=== PATIENT | male | born 1945 | race Caucasian/White ===

== ENCOUNTER → 2021-01-18 | Outpatient (CLI) | payer MEDICARE | LOC: CARD 09:00 | PROVIDERS: ATTEND Internal Medicine Cardiovascular Disease | DX: I51.7 Cardiomegaly (principal); I35.0 Nonrheumatic aortic (valve) stenosis | CPT/HCPCS: 93306 ==

== ENCOUNTER → 2021-04-17 | Day surgery (SDC) | payer MEDICARE ==
[~2021-04-17] VITALS: Ht 180.3 cm; Wt 88.0 kg
[~2021-04-17] MED LIST: LIDOCAINE 1% INJ 20 ML 20 ML VIAL ONE
[2021-04-17 08:03] VITALS: BP 123/80
--- NOTE | 2021-04-17 11:20 | OPERATIVE REPORT ---
DATE OF SERVICE: 04/17/2021 PREOPERATIVE DIAGNOSIS: Symptoms suggestive of transient ischemic attack. POSTOPERATIVE DIAGNOSIS: Symptoms suggestive of transient ischemic attack. PROCEDURE PERFORMED: Implantable loop recorder implantation. INDICATIONS FOR PROCEDURE: The patient is a 75-year-old gentleman, who has had symptoms suggestive of transient ischemic attack. Occult atrial fibrillation is suspected. Implantable loop recorder implantation was carried out after having obtained an informed consent. DESCRIPTION OF PROCEDURE: [facility] The left prepectoral area was prepared and draped in the usual sterile fashion. Lidocaine 1% was used for local anesthesia. The tools provided with the Medtronic LINQ device were used to make a pocket anterior to the left fourth intercostal space into which the device was placed. The device is Medtronic LINQ2 with serial number [id number]. The skin edges were closed using Dermabond and Steri-Strips. He tolerated the procedure well. Job ID: [id number] DocumentID: [id number] Dictated Date: 04/17/2021 08:49:37 [employer] Architect Date: 04/17/2021 11:18:23 Dictated By: MARY LOU VILLA MD, MA, FACP, FACC,
== END ==
LOC: CATH 07:50
PROVIDERS: ATTEND Internal Medicine Cardiovascular Disease
DX: G45.3 Amaurosis fugax (principal); I35.8 Other nonrheumatic aortic valve disorders; I51.9 Heart disease, unspecified; Z79.899 Other long term (current) drug therapy
CPT/HCPCS: 33285; C1764

== ENCOUNTER → 2021-04-26 | Outpatient (CLI) | payer MEDICARE ==
--- NOTE | 2021-04-26 09:12 | Diagnostic Imaging Report ---
PROCEDURE: CT head without contrast. TECHNIQUE: Multiple contiguous axial images were obtained through the brain without the use of intravenous contrast. Auto Exposure Controls were utilized during the CT exam to meet ALARA standards for radiation dose reduction. INDICATION: Visual changes in the right eye. No prior studies are available for comparison. The ventricles and sulci are appropriate for the patient's age. No sulcal effacement or midline shift is identified. No acute intra-axial or extra-axial hemorrhage is detected. Cisterns are patent. Visualized paranasal sinuses are clear. IMPRESSION: No acute intracranial process is detected. Dictated by: Dictated on workstation # [id number]
== END ==
LOC: RAD 08:30
PROVIDERS: ATTEND Family Medicine
DX: H53.131 Sudden visual loss, right eye (principal)
CPT/HCPCS: 70450

== ENCOUNTER → 2022-08-27 | Outpatient (CLI) | payer MEDICARE ==
[~2022-08-27] VITALS: Ht 180 cm; Wt 87.0 kg
[~2022-08-27] MED LIST changes: -LIDOCAINE 1% INJ 20 ML 20 ML VIAL ONE; +REGADENOSON 0.4 MG/5 ML SYR (LEXISCAN) IV ONE
[2022-08-27] MEDS: CATHETER FLUSH 10 ML SYR IVP PRN ×2 (07:20→08:59)
[2022-08-27 08:58] VITALS: BP 130/81
--- NOTE | 2022-08-27 20:05 | STRESS TEST ---
DATE OF SERVICE: 08/27/2022 RESTING AND POST REGADENOSON TECHNETIUM-99M TETROFOSMIN SPECT CT IMAGING CLINICAL DIAGNOSIS: Coronary artery disease. ORDERING PHYSICIAN: Dr. Dodge. PRIMARY PHYSICIAN: Dr. Mishra. Baseline images were carried out after injection of 10.91 mCi of technetium-99m Tetrofosmin. This was followed by 0.4 mg Regadenoson and 29 mCi of technetium-99m Tetrofosmin for stress imaging. The electrocardiogram showed sinus rhythm at baseline. It did not change significantly with the Regadenoson infusion. He tolerated the procedure well. Review of images at rest and following stress does not indicate any significant perfusion defects consistent with myocardial ischemia or infarction. Gated images show normal global left ventricular systolic function with normal regional wall motion. Some degree of diaphragmatic attenuation is seen both at rest and following Regadenoson infusion. The diaphragmatic wall of the left ventricle shows normal wall motion during rest and after stress. Left ventricular ejection fraction is calculated to be 66%. CONCLUSIONS: 1. No evidence of significant myocardial ischemia or infarction. 2. Normal regional wall motion. 3. Normal global left ventricular systolic function with a calculated ejection fraction of 66%. Job ID: [id number] DocumentID: [id number] Dictated Date: 08/27/2022 13:48:48 [employer] Technician Date: 08/27/2022 20:03:55 Dictated By: MARY LOU DODGE MD, MA, FACP, FACC,
== END ==
LOC: CARD 07:45
PROVIDERS: ATTEND Internal Medicine Cardiovascular Disease
DX: I25.10 Atherosclerotic heart disease of native coronary artery without angina pectoris (principal)
CPT/HCPCS: 78452; 93017; A9502

== ENCOUNTER → 2023-04-18 | Outpatient (CLI) | payer MEDICARE | LOC: CARD 08:30 | PROVIDERS: ATTEND Nurse Practitioner Family | DX: I35.8 Other nonrheumatic aortic valve disorders (principal) | CPT/HCPCS: 93306 ==

== ENCOUNTER → 2023-05-22 | Outpatient (CLI) | payer MEDICARE ==
--- NOTE | 2023-05-22 09:50 | Diagnostic Imaging Report ---
PROCEDURE: US Scrotum. TECHNIQUE: Multiple real-time grayscale images were obtained over the scrotum in various projections bilaterally. INDICATION: Left inguinal pain The right testicle measures 4.0 x 2.3 x 2.8 cm. The testis has normal blood flow and echogenicity. The epididymis is normal. There is no hydrocele or varicocele. The left testicle measures 4.3 x 2.2 x 3.1 cm. There is normal blood flow and echogenicity. There is an 8 mm cyst in the left epididymal head. Epididymis otherwise normal. There is no hydrocele or varicocele. There appears to be a left inguinal hernia. IMPRESSION: Left inguinal hernia. Dictated by: Dictated on workstation # [id number]
== END ==
LOC: RAD 08:34
PROVIDERS: ATTEND Nurse Practitioner Family
DX: K40.90 Unilateral inguinal hernia, without obstruction or gangrene, not specified as recurrent (principal)
CPT/HCPCS: 76870

== ENCOUNTER 2023-06-12 05:41 | Outpatient (CLI) | payer MEDICARE ==
[~2023-06-12] VITALS: Ht 180.3 cm; Wt 89.9 kg
[2023-06-12] MEDS ORDERED: SENN-272 PO (13:04)
[2023-06-12] MEDS ORDERED: DILT180C84 PO (13:04)
[2023-06-12] MEDS ORDERED: RIVA20TA PO (13:04)
== END 2023-06-12 13:06 ==
LOC: PREOP 05:41
PROVIDERS: ATTEND Surgery
DX: Z01.818 Encounter for other preprocedural examination (principal)

== ENCOUNTER 2023-06-19 07:40 | Day surgery (SDC) | payer MEDICARE ==
[~2023-06-19] VITALS: Ht 180.3 cm; Wt 89.9 kg
[2023-06-19] VITALS (11 sets, daily range): BP systolic 128–140; BP diastolic 62–81
[~2023-06-19 07:40] MED LIST changes: +DILT180C84 PO; -REGADENOSON 0.4 MG/5 ML SYR (LEXISCAN) IV ONE; +RIVA20TA PO; +SENN-272 PO
[2023-06-19] MEDS ORDERED: ceFAZolin INJECTION 2,000 MG in NS (IVPB) 50 ML 50 ML IV ONE (07:45)
--- NOTE | 2023-06-19 07:51 | Progress Note-Pre Operative ---
Pre-Operative Progress Note Date H&P Reviewed: Jun 19, 2023 Time H&P Reviewed: 07:50 History & Physical: H&P Reviewed, Patient Examed, No changes noted Pre-Operative Diagnosis: left inguinal hernia GARRY GORDON DO Jun 19, 2023 07:51
[2023-06-19] MEDS ORDERED: ROCURONIUM 50 MG/5 ML (ZEMURON) VIAL IV ONE (07:56)
[2023-06-19] MEDS ORDERED: dexAMETHasone INJ 10 MG/ML 1 ML VIAL ONE (07:56)
[2023-06-19] MEDS ORDERED: LIDOCAINE PF 2% 5 ML (XYLOCAINE) VIAL ONE (07:56)
[2023-06-19] MEDS ORDERED: proPOfol 200 MG/20 ML (DIPRIVAN) VIAL IV ONE (07:56)
[2023-06-19] MEDS ORDERED: ONDANSETRON 4 MG/2 ML (SDV) Z0FRAN ONE (07:56)
[2023-06-19] MEDS ORDERED: KETAMINE 50 MG/5 ML SYRINGE ONE (07:58)
[2023-06-19] MEDS ORDERED: HYDROmorphone 2 MG/ML VIAL (DILAUDID) ONE (07:58)
[2023-06-19] MEDS ORDERED: fentaNYL INJ 100 MCG/2 ML AMP ONE (07:58)
[2023-06-19] MEDS ORDERED: LIDOCAINE/EPI 1%-1:100,000 (XYLOCAINE) 20ML ONE (08:03)
[2023-06-19] MEDS: LACTATED RINGERS 1,000 ML IV PRN ×2 (08:14→10:22)
[2023-06-19] MEDS ORDERED: LIDOCAINE/EPI 1%-1:100,000 (XYLOCAINE) 20ML INJ ONE (09:01)
[2023-06-19] MEDS ORDERED: hydrALAZINE (APESOLINE) 20 MG/ML VIAL ONE (09:35)
[2023-06-19] MEDS ORDERED: SUGAMMADEX 500 MG/5 ML VIAL (BRIDION) IV ONE (09:36)
[2023-06-19] MEDS ORDERED: SEVOFLURANE (ULTANE) 15 ML INHAL SOLN ONE ×2 (10:39→10:40)
[2023-06-19] MEDS ORDERED: ACHD5005 PO (11:00)
--- NOTE | 2023-06-19 11:01 | Discharge Inst-Simple/Standard ---
Discharge Inst-Standard Discharge Medications New, Converted or Re-Newed RX: Transmitted to Pharmacy Patient Instructions/Follow Up Plan of Care/Instructions/FU: Cristo 2 weeks Hold Xarelto 3 more days then restart. Activity as Tolerated: No Discharge Diet: Regular Diet Other Inst to Patient Follow up Appt: Make appointment for 2 week. Hold Xarelto 3 more days. Instructions: No lifting greater than 10 pounds. No strenuous activity. May shower in 24 hours, no tub bath or soaking. Use incentive spirometer at home as directed. No Smoking Skin/Wound Care: You have special glue over your incision that will fall off on it's own. Symptoms to Report: Appetite Changes, Extremity Discoloration, Numbness/Tingling, Swelling Increased, Bleeding Excessive, Eyesight Changes, Pain Increased, Urine Color Change, Constipation(Persistent), Fever over 101 degree F, Pain/Pressure in chest, Urinating Difficulty, Cough Up/Vomit Blood, Heart Beat Irreg/Pounding, Pain/Pressure in jaw, Vaginal Bleeding Increase, Cramps in feet or legs, Lightheadedness, Pain/Pressure in shoulder, Diarrhea(Persistent), Memory Changes Suddenly, Questions/Concerns, Weight gain consecutive days, Dizziness/Fainting, Nausea/Vomiting, Shortness of Breath, Weight gain over 2 pounds If questions or concerns contact your physician Or seek help at emergency department. GARRY GORDON DO Jun 19, 2023 11:01
--- NOTE | 2023-06-19 11:07 | Progress Note-Post Operative ---
Post-Operative Progess Note Surgeon (s)/[facility] Service Line (s) Surgeon GARRY GORDON DO [facility] Service Line: Dr. Victor to assist in retraction dissectdion and closure. Pre-Operative Diagnosis left inguinal hernia Post-Operative Diagnosis left inguinal hernia and large cord lipoma Procedure & Operative Findings Date of Procedure 06/19/23 Procedure Performed/Findings PROCEDURE: Robotic left inguinal hernia repair and excision cord lipoma. After informed consent was obtained, the patient was brought to the operating room and placed on the operating table in a supine position. He was sterilely prepped and draped in a normal fashion. Local lidocaine was used to infiltrate the skin above the umbilicus. I made an incision with #11 blade, carried down to the skin into subcutaneous tissue and then deepened down the subcutaneous tissue with Bovie electrocautery down to the fascia. Fascia was incised with Bovie electrocautery and bluntly entered the abdomen, swept a finger around, placed 0 Vicryl [id number] suture and placed limited trocar port under direct visualization. Created pneumoperitoneum, able to visualize the hernia and took a picture of this and then placed two 8 mm ports about 10 cm on either side of the midline port using a local lidocaine, 11 blade for stab incision and then advanced the robotic port under direct visualization. Once this was in, I then placed the patient in Trendelenburg and then placed the working instruments, the fenestrated bipolar and the scissors. Looked on the left side and saw early signs of inguinal hernia. I could see a direct hernia defect on the right side. Next, I came across the peritoneum approximately 8 cm away from the hernia defect, going across laterally starting lateral about 17cm and cutting toward the median umbilical ligament. I then carefully dissected the visceral peritoneum away and down and then in the midline, went through the parietal side and dissected down to the pubic tubercle, dissecting this down carefully pushing the peritoneum away, I was able to then visualize the pubic tubercle and Dong's ligament. I went 2 cm posterior and at this point, we then had a critical view of the dissection, able to dissect 2 cm across the midline to the right side, 2 cm posterior to the Dong's ligament, able to then parietalize the vas deferens and spermatic vessels right at the groove between Dong's and iliac vein and able to dissect, make sure there was no peritoneum between those two, able to see the indirect hernia space, took a picture of this, looked at the femoral space (no hernia seen). Then I carefully teased out the hernia sac and could visualize the indirect hernia space. Next I looked on the cord and cord structures. There was a large cord lipoma that I was able to reduce and cut off. This was then removed throught the port to get it out of the peritoneal space. I could clearly see the inguinal canal and the indirect space. Next I carried the posterior lateral dissection all the way out and then placed a Bard 3DMax mesh. It laid in nicely, covered the hernia defect and the rest of the area. It was above the peritoneum, sutured it at the pubic tubercle with a 3-0 Vicryl suture and tied this off. This appeared to lay in very nicely. I then brought down the pneumoperitoneum to about 8 mmHg and then started closing the peritoneum. Started laterally and used a 2-0 V-lock barbed suture to start a running stitch to close the peritoneum. [place] and cord lipoma were removed from the abdomen. The patient was then placed back supine, removed all ports under direct visualization, allowed pneumoperitoneum to escape and then closed the supraumbilical incision, closing the fascia with 0 Vicryl suture previously placed. Copiously irrigated all incisions and then closed the two small 8 mm incisions with two interrupted 4-0 undyed Monocryl subcuticular stitches and closed the supraumbilical incision with three interrupted undyed Monocryl subcuticular stitch. Area was cleaned and dried. Dermabond was placed. The patient tolerated the procedure. The sponge, instrument and needle counts were correct at the end of the case. Dr. Victor assisted during this surgery by making incisions, closing incisions, helping to identify anatomy and passing/retrieving suture and needles. Anesthesia Type general Estimated Blood Loss Estimated blood loss (mL): minimal Specimens/Packing Specimens Removed cord lipoma left GARRY GORDON DO Jun 19, 2023 11:07
[2023-06-19] MEDS ORDERED: ONDANSETRON 4 MG/2 ML (SDV) Z0FRAN IVP PRN (11:15)
[2023-06-19] MEDS ORDERED: morphine INJ 10 MG/ML 1ML (SYR OR VIAL) IVP ONE (11:15)
[2023-06-19] MEDS ORDERED: HYDROmorphone 2 MG/ML VIAL (DILAUDID) IV ONE (11:15)
[2023-06-19] MEDS ORDERED: morphine INJ 10 MG/ML 1ML (SYR OR VIAL) ONE (11:26)
--- NOTE | 2023-06-19 13:16 | Anesthesia-General Post-Op ---
General Patient Condition Mental Status/LOC: Same as Preop Cardiovascular: Satisfactory Nausea/Vomiting: Absent Respiratory: Satisfactory Pain: Controlled Complications: Absent Post Op Complications Complications None Follow Up Care/Instructions Patient Instructions None needed. Anesthesia/Patient Condition Patient Condition Patient was doing well this morning after the procedure with no complaints, stable vital signs, no apparent adverse anesthesia problems. No complications reported per nursing. MELONY JESUS DO Jun 19, 2023 13:16
== END 2023-06-19 15:05 | disposition home or self-care (01) ==
LOC: SDC 07:40
PROVIDERS: ATTEND Surgery
DX: K40.90 Unilateral inguinal hernia, without obstruction or gangrene, not specified as recurrent (principal); D17.6 Benign lipomatous neoplasm of spermatic cord
CPT/HCPCS: 49650; 87081; 94664; C1781